=== PATIENT | female | born 2000 | race African-American/Black ===

== ENCOUNTER 2019-05-07 13:31 | Emergency (ER) | payer OTHER, SELFPAY ==
[2019-05-07 13:35] VITALS: BP 125/88; PULSE 81; RESP 22; TEMP 36.8; O2SAT 100
[2019-05-07 15:00] VITALS: BP 121/77; PULSE 75; RESP 17; O2SAT 99
--- NOTE | 2019-05-07 15:25 | ED.SYNCOPE ---
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 She states that she was at basketball practice when she became lightheaded, so she was walking to sit down when she had a syncopal episode. Per call center trainer states that the pt?s head did hit the floor and that she had LOC for 2-3 seconds. The pt?s reports a [place]. They note that the pt had a similar event a couple years ago and has since had a full cardio work up, which all came back normal. She denies any fevers, chills, SOB, CP, N/V/D, ABD pain, and any other medical complaints at this time. complaint: loss of consciousness Onset (ago): minute(s) Duration of episode: 3 -: second(s) Prodromal symptoms: lightheaded Witnessed: Yes - by Bystander Context: during exertion (at basketball practice) Injuries sustained associated with event: head Current symptoms: headache History: previous syncopal episode Review of Systems Review of Systems: All systems reviewed & are unremarkable except as noted in HPI and below Constitutional: Constitutional: Denies chills, Denies fever(s) and Denies weakness Eyes: Eyes: Denies blurry vision ENT: Denies headache(s) and Denies neck pain Cardiovascular: Cardiovascular: Denies chest pain, Reports lightheadedness and Denies dyspnea Respiratory: Respiratory: Denies cough and Denies dyspnea Gastrointestinal: Gastrointestinal: Denies abdominal pain, Denies diarrhea, Denies nausea and Denies vomiting Genitourinary: Genitourinary: Denies hematuria and Denies dysuria Musculoskeletal: Musculoskeletal: Denies back pain and Denies neck pain Neurologic: Reports syncope, Reports headache(s) and Denies weakness PMFSH Past Medical History Medical History (Updated 05/07/19 @ 16:08 by Lizzie Taylor MD) Medical history unknown Surgical History Surgical History (Updated 05/07/19 @ 15:50 by Gurpreet Avilez) Surgical history unknown Social History Social History (Updated 05/07/19 @ 15:50 by Gurpreet Avilez) Smoking status: Never smoker Exam Const: General: no acute distress and well developed Orientation/consciousness: oriented to person, oriented to place, oriented to time and patient oriented x3 HENMT: Head: normocephalic Ears: external ears normal General nose exam: Normal external nose present Eyes: General: appearance normal, both eyes and all related structures Conjunctivae: conjunctivae normal Neck: Neck: normal visual inspection and full ROM Chest: Chest palpation & inspection: normal inspection of the chest and no tenderness Resp: Effort & Inspection: normal respiratory effort Auscultation: clear to auscultation bilaterally Cardio: Rate: regular rate Rhythm: regular rhythm GI: GI Palp: No abdominal tenderness and Yes Soft to palpation Skin: General skin exam: normal color and turgor normal Neuro: General: oriented to person, oriented to place, oriented to time and patient oriented x3 Cranial nerves: Yes CN's II-XII intact bilaterally Cognition (Neuro): normal cognition Speech: normal speech Motor exam (neuro): 5/5 motor strength present throughout Sensory Exam: normal sensation Coordination: [id number] test normal and [id number] test normal Extrem: General: normal to inspection, full ROM and no pedal edema Psych: Appearance: grossly normal Mental Status: mental status grossly normal Affect: normal affect Course Vital Signs Vital signs: Vital Signs Temperature 36.8 C 05/07/19 13:35 Pulse Rate 81 05/07/19 13:35 Respiratory Rate 22 H 05/07/19 13:35 Blood Pressure 125/88 05/07/19 13:35 Pulse Oximetry 100 05/07/19 13:35 Temperature 36.8 C 05/07/19 13:35 Pulse Rate 81 05/07/19 13:35 Respiratory Rate 22 H 05/07/19
[2019-05-07 15:38] LABS: Add Urine Microscopic? YES; Appearance Urine Cloudy (Clear); Bacteria Urine Trace /hpf; Bilirubin Urine Negative (Negative); Blood Urine Negative (Negative); Color Urine Yellow (Yellow); Glucose Urine UA Negative (Negative); Ketones Urine Trace mg/dL (Negative); Leukocyte Esterase Ur 2+ LEU/UL (Negative); Mucus Urine Heavy /lpf; Nitrate Urine Negative (Negative); Protein Urine 2+ mg/dL (Negative); Specific Grav Ur 1.029 (1.001-1.035); Squamous Epithelial Cell Urine Many /hpf (Few); Urobilinogen Urine Negative mg/dL (<2.0); WBC Urine 0-3 /hpf
[2019-05-07 15:39] LABS: Alanine Aminotransferase 19 U/L (4-35); Albumin Level 4.5 g/dL (3.5-5.1); Alkaline Phosphatase 98 U/L (38-126); Aspartate Amino Transferase 34 U/L (14-36); Bilirubin,Total 0.6 mg/dL (0.2-1.3); Blood Urea Nitrogen 20 mg/dL (7-17); Calcium 9.4 mg/dL (8.4-10.2); Carbon Dioxide 24 mmol/L (22-30); Chloride 103 mmol/L (98-107); Estimated Glomerular Filt Rate > 60; Glucose 80 mg/dL (65-105); Potassium 4.1 mmol/L (3.4-5.0); Sodium 140 mmol/L (137-145)
[2019-05-07 15:40] LABS: Basophils Percent Auto 0.3 % (0.2-1.2); Eosinophils Percent Auto 0.2 % (0-4.4); Hematocrit 40.8 % (37.0-47.0); Hemoglobin 13.6 g/dL (12.0-15.0); Immature Granulocyte Absolute 0.01 K/mm3 (0.00-0.031); Immature Granulocyte Percent A 0.2 % (0-0.5); Lymphocytes Absolute Auto 1.06 K/mm3 (0.9-3.2); Lymphocytes Percent Auto 17.8 % (18.3-44.2); Mean Corpuscular HGB Conc 33.3 g/dl (32-36); Mean Corpuscular Hemoglobin 29.6 pg (26-34); Mean Corpuscular Volume 88.9 fl (80-100); Mean Platelet Volume 10.1 fl (7.4-10.4); Monocytes Absolute Auto 0.5 K/mm3 (0.1-0.6); Monocytes Percent Auto 9.1 % (2.6-8.5); Neutrophils Absolute Auto 4.3 K/mm3 (1.3-6.7); Neutrophils Percent Auto 72.4 % (45.5-73.1); Platelet Count Result 214 k/mm3 (150-375); Red Blood Count 4.59 M/mm3 (4.2-5.4); Red Cell Distribution Width 13.2 % (11.5-14.5)
[2019-05-07] MEDS: SODIUM CHLORIDE 0.9% IV 1,000 ML 999 ML IV CONT (15:47)
[2019-05-07 16:20] VITALS: BP 120/75; PULSE 80; RESP 16; O2SAT 99
--- NOTE | 2019-05-07 16:45 | ECG_ITS ---
Measurements Intervals [place] Rate: 77 P: 57 WA: 134 QRS: 70 QRSD: 89 T: 55 QT: 397 QTc: 451 Interpretive Statements SINUS RHYTHM WITH SINUS ARRHYTHMIA VOLTAGE CRITERIA FOR LVH MINIMAL Q WAVES- DIFFUSE LEADS ST ELEVATION IN DIFFUSE LEADS- PROBABLY EARLY REPOLARIZATION PATTERN BORDERLINE ECG Electronically Signed On 05-07-2019 16:50:12 PRINTER ASSISTANT by Ethan Batista D.O.
== END 2019-05-07 16:20 | disposition home or self-care (01) ==
PROVIDERS: Emergency Provider Emergency Medicine
DX: R55 Syncope and collapse (principal)
CPT/HCPCS: 36415; 80053; 81001; 81025; 85025; 93005; 96360; 99283; J7030